=== PATIENT | female | born 1965 | race Hispanic/Latino ===

== ENCOUNTER 2018-11-03 09:05 | Observation (INO) | payer BC ==
[2018-11-01 12:58] VITALS: BP 126/76
[2018-11-01 13:06] LABS: BASOPHILS % (AUTO) 0.4 % (0.0-5.0); EOSINOPHILS % (AUTO) 3.1 % (0.0-8.0); HEMATOCRIT 42.8 % (36-48); LYMPHOCYTES % (AUTO) 45.9 % (21.0-51.0); MEAN CORPUSCULAR HEMOGLOBIN 31.2 pg (27.0-33.0); MEAN CORPUSCULAR HGB CONC 33.4 g/dL (32.0-36.0); MEAN CORPUSCULAR VOLUME 93.4 fL (79-99); MONOCYTES % (AUTO) 7.3 % (3.0-13.0); NEUTROPHILS % (AUTO) 43.3 % (40.0-77.0); NUCLEATED RED BLOOD CELLS 0.3 % (0.0-0.19); PLATELET COUNT (AUTO) 253 K/uL (130-400); RED BLOOD CELL COUNT(AUTO) 4.59 MIL/uL (4.00-5.50); RED CELL DISTRIBUTION WIDTH 12.9 % (11.0-15.5); WHITE BLOOD COUNT (AUTO) 6.9 K/uL (4.8-10.8)
[~2018-11-03] VITALS: Ht 152.4 cm; Wt 67.8 kg
[2018-11-03] VITALS (20 sets, daily range): BP systolic 87–144; BP diastolic 54–81
[~2018-11-03 09:05] MED LIST: CALDOLOR 800MG+NS 250ML 250 ML IV SCH; CEFAZOLIN SODIUM 1 GM VIAL IVP SCH; LEVO50TA6 PO; LISI-613 PO; SIMV40TA5 PO
[2018-11-03] MEDS ORDERED: CEFAZOLIN SODIUM 1 GM VIAL ONE (09:21)
[2018-11-03] MEDS ORDERED: LACTATED RINGERS 1000ML 1,000 ML IV ONE (09:22)
[2018-11-03] MEDS ORDERED: CALDOLOR 800MG+NS 250ML 250 ML IV ONE (09:54)
[2018-11-03] MEDS ORDERED: BUPIVACAINE/PF 0.25% 30ML VIAL IJ ONE (10:44)
[2018-11-03] MEDS ORDERED: LIDOCAINE 1%-EPI 1:100,000 20 ML VIAL IJ ONE (10:44)
[2018-11-03] MEDS ORDERED: SULFANILAMIDE 120 GM TUBE VG ONE (10:45)
[2018-11-03] MEDS ORDERED: KETAMINE HCL 100 MG/ML 5ML VIAL IJ ONE (11:01)
[2018-11-03] MEDS ORDERED: MAGNESIUM SULFATE 1 GM/2 ML VIAL ONE (11:01)
[2018-11-03] MEDS ORDERED: DURAMORPH PF1 MG/ML 10ML AMP IV ONE (11:01)
[2018-11-03] MEDS ORDERED: MIDAZOLAM HCL 1 MG/ML 2ML VIAL ONE (11:02)
[2018-11-03] MEDS ORDERED: PROPOFOL 10 MG/ML 20ML VIAL IV ONE (11:02)
[2018-11-03] MEDS ORDERED: FENTANYL CITRATE PF 50 MCG/1 ML 2ML VIAL ONE (11:08)
[2018-11-03] MEDS ORDERED: ROCURONIUM 10MG/1ML SYR 10 MG/ML ML ONE (11:28)
[2018-11-03] MEDS ORDERED: EPHEDRINE SULFATE 50 MG/ML AMPULE ONE (12:41)
[2018-11-03] MEDS ORDERED: GLYCOPYRROLATE 1 MG/5 ML SYRINGE ONE (13:10)
[2018-11-03] MEDS ORDERED: NEOSTIGMINE 5MG/5ML SYR IV ONE (13:10)
[2018-11-03] MEDS ORDERED: DEXTROSE 5 %-0.45 % NACL 1,000 ML IV PRN (13:22)
[2018-11-03] MEDS ORDERED: ONDANSETRON HCL 4 MG/2 ML VIAL IVP PRN ×3 (13:30→20:15)
[2018-11-03] MEDS ORDERED: PROMETHAZINE HCL 25 MG/ML 1ML AMPULE IM PRN ×2 (13:30→20:15)
[2018-11-03] MEDS ORDERED: BISACODYL 10 MG SUPP.RECT RC PRN (13:30)
[2018-11-03] MEDS ORDERED: MEPERIDINE-PF 25 MG/ML SYG ONE (13:37)
[2018-11-03] MEDS: SIMETHICONE 80 MG TAB.CHEW PO PRN ×2 (18:45→22:57)
[2018-11-03] MEDS: CEFAZOLIN 3GM /D5W 100ML 100 ML IV SCH (19:11)
[2018-11-03] MEDS ORDERED: MEPERIDINE-PF 25 MG/ML SYG IV PRN (20:15)
[2018-11-03] MEDS ORDERED: EPHEDRINE SULFATE 50 MG/ML AMPULE IVP PRN (20:15)
[2018-11-03] MEDS ORDERED: MORPHINE SULFATE 2 MG/ML 1ML SYG IVP PRN (20:15)
[2018-11-03] MEDS ORDERED: ONDANSETRON HCL 4 MG/2 ML 8 MG in SODIUM CHLORIDE 0.9% 50 ML IVP NR (20:15)
[2018-11-03] MEDS ORDERED: DiphenhydrAMINE HCL 50 MG/ML VIAL IVP PRN (20:15)
[2018-11-03] MEDS ORDERED: NALOXONE HCL 0.4 MG/1 ML ML IVP PRN ×2 (20:15)
[2018-11-03] MEDS ORDERED: METOCLOPRAMIDE 10 MG/2 ML VIAL IVP PRN (20:15)
[2018-11-03] MEDS ORDERED: HYDROCODONE/ACETAMINOPHEN 5/325 MG TAB PO PRN ×2 (20:15)
[2018-11-03] MEDS ORDERED: SIMVASTATIN 20 MG TABLET PO SCH (21:00)
[2018-11-03] MEDS: CALDOLOR 800MG+NS 250ML 250 ML IVPB SCH (21:24)
[2018-11-03] MEDS: DOCUSATE SODIUM 100 MG CAP PO PRN (22:57)
[2018-11-04] VITALS: BP 82/51
[2018-11-04] MEDS: CEFAZOLIN 3GM /D5W 100ML 100 ML IV SCH (03:01)
[2018-11-04 04:25] VITALS: BP 87/56
[2018-11-04] MEDS: CALDOLOR 800MG+NS 250ML 250 ML IVPB SCH (05:22)
[2018-11-04 06:40] LABS: HEMATOCRIT 33.3 % (36-48); MEAN CORPUSCULAR HEMOGLOBIN 32.1 pg (27.0-33.0); MEAN CORPUSCULAR HGB CONC 34.6 g/dL (32.0-36.0); MEAN CORPUSCULAR VOLUME 92.8 fL (79-99); PLATELET COUNT (AUTO) 227 K/uL (130-400); RED BLOOD CELL COUNT(AUTO) 3.59 MIL/uL (4.00-5.50); WHITE BLOOD COUNT (AUTO) 10.8 K/uL (4.8-10.8)
[2018-11-04] MEDS ORDERED: LEVOTHYROXINE 50 MCG TABLET PO SCH (07:30)
[2018-11-04 07:31] VITALS: BP 113/73
[2018-11-04] MEDS: SIMETHICONE 80 MG TAB.CHEW PO PRN (08:34)
[2018-11-04] MEDS: DOCUSATE SODIUM 100 MG CAP PO PRN (08:34)
[2018-11-04] MEDS ORDERED: LISINOPRIL 20 MG TABLET PO SCH (09:00)
[2018-11-04 11:35] VITALS: BP 123/72
[2018-11-04] MEDS ORDERED: IBUPROFEN 800 MG TAB PO SCH (13:30)
== END 2018-11-04 11:40 | disposition home or self-care (01) ==
LOC: DAH 09:05 → WSH 09:06
DX: N87.9 Dysplasia of cervix uteri, unspecified (principal); K66.0 Peritoneal adhesions (postprocedural) (postinfection); D62 Acute posthemorrhagic anemia; N89.8 Other specified noninflammatory disorders of vagina
CPT/HCPCS: 36415 ×2; 58550; 84702; 85025; 85027; 86850; 86900; 86901; 88104; 88305; 88307; 96365; 96366 ×2; 96367; 96375; A4215 ×2; A4344; A4351; A4510; A4930; C1769 ×3; G0378 ×27; J0690 ×2; J1741 ×3; J2175; J2250; J2274; J2405; J2704; J2710; J3010; J3475; J3490 ×4; J7030; J7120